=== PATIENT | female | born 1995 | race Caucasian/White ===

== ENCOUNTER 2021-12-30 00:57 | Emergency (ER) | payer OTHER ==
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
[2021-12-30] MEDS ORDERED: MECLIZINE 12.5 MG TABLET PO STA (01:25)
[2021-12-30] MEDS ORDERED: IBUPROFEN 600 MG TABLET PO STA (01:25)
[2021-12-30 01:43] LABS: BASOPHILS # (AUTO) 0.1 10^3/uL (0.0-0.1); BASOPHILS % (AUTO) 0.9 %; EOSINOPHILS # (AUTO) 0.3 10^3/uL (0.0-0.7); EOSINOPHILS % (AUTO) 4.4 %; HCT - HEMATOCRIT 37.6 % (37.0-47.0); HGB - HEMOGLOBIN 12.6 g/dL (12.0-16.0); LYMPHOCYTES # (AUTO) 2.4 10^3/uL (1.5-3.5); LYMPHOCYTES % (AUTO) 37.3 %; MEAN CORPUSCULAR HEMOGLOBIN 30.9 pg (27.0-31.0); MEAN CORPUSCULAR HGB CONC 33.5 g/dL (32.0-36.0); MEAN CORPUSCULAR VOLUME 92.2 fL (81.0-99.0); MEAN PLATELET VOLUME 10.4 fL (7.9-10.8); MONOCYTES # (AUTO) 0.6 10^3/uL (0.0-1.0); NEUTROPHILS # (AUTO) 3.1 10^3/uL (1.5-6.6); NEUTROPHILS % (AUTO) 48.2 %; PLT - PLATELET COUNT 234 10^3/uL (130-450); RED BLOOD COUNT 4.08 10^6/uL (4.20-5.40); RED CELL DISTRIBUTION WIDTH 12.3 % (12.0-15.0); WHITE BLOOD COUNT 6.4 x10^3/uL (4.8-10.8)
[2021-12-30 01:48] LABS: CREATININE 1.1 mg/dL (0.4-1.0); POTASSIUM 3.9 mmol/L (3.5-5.0)
[2021-12-30 01:57] LABS: HCG UR QUAL NEGATIVE
[2021-12-30 02:51] VITALS: BP 122/73
== END 2021-12-30 02:53 | disposition home or self-care (01) ==
LOC: ED 00:57
DX: R42 Dizziness and giddiness (principal); R51.9 Headache, unspecified
CPT/HCPCS: 36415; 80048; 81025; 85025; 99283; 99284; A9270

== ENCOUNTER 2022-02-15 07:47 | Outpatient (CLI) | payer OTHER ==
--- NOTE | 2022-02-15 10:26 | MRI Report ---
PROCEDURE: Brain W/O INDICATIONS: POSTCONCUSSIONAL SYNDROME TECHNIQUE: Noncontrast axial T1 spin echo, axial T2 fast spin echo, sagittal and axial FLAIR, coronal T2 fast sp in echo, axial gradient echo, axial diffusion and ADC through the brain. COMPARISON: None. FINDINGS: Image quality: Excellent. CSF Spaces: Basal cisterns are patent. No extra-axial fluid collections. Ventricles are normal in size and shape. Brain: No intracranial masses or hemorrhage. Gutierrez/white matter interface is normal. Brainstem appe ars normal. Diffusion-weighted images demonstrate no acute ischemic insult. No chronic ischemic ins ults. Normal intravascular flow voids are present. Skull and face: Calvarium has normal marrow signal. Orbits appear normal. Sinuses: Sinuses and mastoids are clear. IMPRESSION: 1. No acute intracranial abnormality. 2. No recent infarct. Reviewed by: Lesa Maravilla MD on 02/15/2022 10:24 AM PDT Approved by: Lesa Maravilla MD on 02/15/2022 10:24 AM PDT Station ID: [id number]
== END 2022-02-15 07:48 | disposition home or self-care (01) ==
LOC: DI 07:47
DX: F07.81 Postconcussional syndrome (principal)